=== PATIENT | female | born 1935 | race Caucasian/White ===

== ENCOUNTER → 2018-05-26 | Outpatient (CLI) | payer BC, MEDICARE ==
--- NOTE | 2018-05-26 14:04 | Diagnostic Imaging Report ---
EXAMINATION: PA and lateral views of the chest. COMPARISON: None CLINICAL HISTORY: Bronchitis DISCUSSION: Lines/tubes: None. Lungs: The lungs are well inflated and clear. No pneumonia or pulmonary edema. Pleura: No pleural effusion or pneumothorax. Heart and mediastinum: The cardiomediastinal silhouette is normal. Bones and soft tissues: No acute bony abnormalities. Remote compression fractures of the mid thoracic spine. IMPRESSION: No acute cardiopulmonary abnormalities. Signed by: Dr. Abram Yuen M.D. on 05/26/2018 2:00 PM
== END ==
LOC: RAD 12:48
PROVIDERS: ATTEND Internal Medicine
DX: J40 Bronchitis, not specified as acute or chronic (principal)
CPT/HCPCS: 71046

== ENCOUNTER → 2018-10-07 | Outpatient (CLI) | payer MEDICARE, BC ==
--- NOTE | 2018-10-07 13:12 | Diagnostic Imaging Report ---
EXAMINATION: CHEST 2 VIEWS INDICATION: Pre-operative COMPARISON: Chest radiograph of 05/26/2018 FINDINGS: LINES/TUBES:None LUNGS:The lungs are hyperinflated. Mild bilateral upper lobe predominant emphysema. No focal consolidation or pulmonary edema. Right lower lobe calcified granuloma. PLEURA:No pleural effusion or pneumothorax. MEDIASTINUM:The cardiomediastinal silhouette appears normal in size and shape. Atherosclerotic calcifications of the thoracic aorta. BONES/SOFT TISSUES:Compression fractures of 3 contiguous vertebral bodies, likely T12, L1 and L2. ABDOMEN:No free air under the diaphragm. IMPRESSION: Hyperinflated lungs. No focal pneumonia or pulmonary edema. Age-indeterminate compression fractures likely at T12, L1 and L2. Signed by: Jose Villalobos MD on 10/07/2018 1:09 PM
== END ==
LOC: RAD 11:42
PROVIDERS: ATTEND Internal Medicine
DX: Z01.818 Encounter for other preprocedural examination (principal)
CPT/HCPCS: 71046